=== PATIENT | female | born 1970 | race Caucasian/White ===

== ENCOUNTER 2018-10-01 11:39 | Emergency (ER) | payer OTHER ==
[2018-10-01] MEDS: LIDOCAINE 1% (MPF) 5 ML VIAL INFIL (14:00)
[2018-10-01] MEDS: ACETAMINOPHEN 500 MG TAB PO (14:00)
[2018-10-01] MEDS: CEFTRIAXONE 1 GM INJ IM (14:00)
[2018-10-01 14:11] LABS: ADD UMIC YES; UR ASCORBIC ACID NEGATIVE (NEGATIVE); UR BACTERIA MANY /HPF (NONE SEEN); UR BILIRUBIN (Dip) NEGATIVE (NEGATIVE); UR BLOOD (Dip) 1+ mg/dL (NEGATIVE); UR CLARITY CLOUDY (CLEAR); UR COLOR YELLOW (YELLOW); UR GLUCOSE (Dip) NEGATIVE (NEGATIVE); UR KETONES (Dip) NEGATIVE (NEGATIVE); UR LEUKOCYTE ESTERASE (Dip) TRACE Leu/ul (NEGATIVE); UR MUCUS FEW /HPF (NONE SEEN); UR NITRITE (Dip) NEGATIVE (NEGATIVE); UR RBC 4 /HPF (0-5); UR SPECIFIC GRAVITY (Dip) 1.005 (1.003-1.030); UR SQUAMOUS EPITHELIAL CELL FEW /HPF (FEW); UR TOTAL PROTEIN (Dip) NEGATIVE (NEGATIVE); UR UROBILINOGEN (Dip) NEGATIVE (NEGATIVE); UR WBC 14 /HPF (0-5)
== END 2018-10-01 14:46 | disposition home or self-care (01) ==
LOC: FTE 11:39
DX: N39.0 Urinary tract infection, site not specified (principal)
CPT/HCPCS: 81001; 81025; 87086; 96372; 99284-25

== ENCOUNTER 2019-01-04 09:22 | Emergency (ER) | payer OTHER ==
[2019-01-04 11:47] LABS: URINE BLOOD (Dip) POC Trace-intact (NEGATIVE); URINE GLUCOSE (Dip) POC Negative (NEGATIVE); URINE KETONES (Dip) POC Negative (NEGATIVE); URINE LEUKOCYTE EST (Dip) POC 1+ (NEGATIVE); URINE NITRITE (Dip) POC Negative (NEGATIVE); URINE TOTAL PROTEIN POC Negative (NEGATIVE)
[2019-01-04] MEDS: KETOROLAC 30 MG INJ IM (11:54)
== END 2019-01-04 12:29 | disposition home or self-care (01) ==
LOC: FTE 09:22
DX: M54.5 Low back pain (principal); N30.00 Acute cystitis without hematuria; Z79.82 Long term (current) use of aspirin
CPT/HCPCS: 81003; 81025; 96372; 99284-25